=== PATIENT | female | born 1935 | race Caucasian/White ===

== ENCOUNTER 2017-08-23 07:42 | Outpatient (CLI) | payer OTHER ==
[2017-08-24] MEDS ORDERED: SYNTHROID88 MCG PO (15:40)
[2017-08-24] MEDS ORDERED: GABAPENTIN800 MG PO (15:41)
[2017-08-24] MEDS ORDERED: ZOCOR20 MG PO (15:41)
[2017-08-24] MEDS ORDERED: NORVASC2.5 M1 PO (15:41)
[2017-08-24] MEDS ORDERED: METOPROLOL SUC100 MG PO (15:42)
== END 2017-08-23 07:46 | disposition home or self-care (01) ==
LOC: LAB 07:42
DX: D68.8 Other specified coagulation defects (principal); Z01.818 Encounter for other preprocedural examination

== ENCOUNTER 2017-08-24 14:00 | Inpatient (IN) | payer OTHER ==
[~2017-08-24] VITALS: Ht 157.5 cm; Wt 63.5 kg
[2017-08-24] MEDS ORDERED: SYNTHROID88 MCG PO (15:40)
[2017-08-24] MEDS ORDERED: NORVASC2.5 M1 PO (15:41)
[2017-08-24] MEDS ORDERED: ZOCOR20 MG PO (15:41)
[2017-08-24] MEDS ORDERED: GABAPENTIN800 MG PO (15:41)
[2017-08-24] MEDS ORDERED: METOPROLOL SUC100 MG PO (15:42)
[2017-08-31] MEDS ORDERED: OXYC1TAB9 PO (08:09)
[2017-08-31] MEDS ORDERED: INTEGRA PLUS C1 EACH PO (08:09)
[2017-08-31] MEDS ORDERED: XARELTO10 MG PO (08:09)
== END 2017-08-31 13:57 | DRG 470 ==
LOC: O/R 08-28 06:21 → SURG 08-28 06:21 → SURH 08-28 10:45 → SURG 08-28 15:19
PROVIDERS: Orthopaedic Surgery Sports Medicine
PROC: 0SRC0J9 Replacement of Right Knee Joint with Synthetic Substitute, Cemented, Open Approach (ICD-10-PCS; principal; 2017-08-28 10:45)
PROC: 30233N1 Transfusion of Nonautologous Red Blood Cells into Peripheral Vein, Percutaneous Approach (ICD-10-PCS; 2017-08-30)
DX: M17.11 Unilateral primary osteoarthritis, right knee (principal); I10 Essential (primary) hypertension; E03.8 Other specified hypothyroidism; E78.4 Other hyperlipidemia; D64.89 Other specified anemias

== ENCOUNTER 2017-09-17 16:14 | Emergency (ER) | payer OTHER ==
[~2017-09-17] VITALS: Ht 152.4 cm; Wt 64.9 kg
[~2017-09-17 16:14] MED LIST: GABAPENTIN800 MG PO; INTEGRA PLUS C1 EACH PO; METOPROLOL SUC100 MG PO; NORVASC2.5 M1 PO; OXYC1TAB9 PO; SYNTHROID88 MCG PO; XARELTO10 MG PO; ZOCOR20 MG PO
[2017-09-17] MEDS ORDERED: HYDROCHLOROTH12.5 M1 (16:32)
[2017-09-17] MEDS ORDERED: ALTACE1.25 MG (16:32)
== END 2017-09-17 21:34 | disposition home or self-care (01) ==
LOC: ER 16:14
DX: R55 Syncope and collapse (principal); I95.89 Other hypotension